=== PATIENT | female | born 1945 | race Caucasian/White ===

== ENCOUNTER 2018-07-15 09:01 | Day surgery (SDC) | payer MEDICARE ==
--- NOTE | 2018-07-01 07:40 | HP ---
CC: Dr. Mcarthur HISTORY AND PHYSICAL: DATE OF PLANNED ADMISSION AND SURGERY: 07/15/18 HISTORY OF PRESENT ILLNESS: Ms. Ching is a 72-year-old white female, who is admitted with left hydronephrosis, left ureteropelvic junction obstruction for cystoscopy, balloon dilation, and placement of left ureteral stent. Ms. Ching was referred to my office by Ms. Yash NP, from Dr. Mcarthur's office because of microhematuria and urge urinary incontinence. She was treated in the past for her incontinence and had an InterStim placement by Dr. Kim in [place], [place]. The InterStim stopped working possibly because the battery was depleted. When I saw her in my office, I started her on Myrbetriq 50 mg daily. She noted significant improvement of her urge incontinence and the InterStim was removed. As a workup of her microhematuria and incontinence, she had a work-up. Cystoscopy was negative showing no bladder lesions. Renal ultrasound showed [id number] left hydronephrosis consistent with ureteropelvic junction obstruction, without associated hydroureter and no calculi or masses to explain the hydronephrosis. She did not have any previous renal imaging to see if this finding is chronic or new. CT urogram was obtained showing left UPJ obstruction, and there were no associated retroperitoneal masses or filling defects in the ureter or the renal pelvis. Diuretic nuclear renal scan was then obtained, and was consistent with high- grade obstruction of the left kidney at the UPJ level with a T1/2 of 94 minutes. The patient has been having on and off left flank pain. It was interpreted in the past as being musculoskeletal in nature. She denies any history of gross hematuria, urinary tract infections, or pyelonephritis. The patient is a nonsmoker. 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 She has not required any additional treatment. She has had no recurrent disease. She is hypertensive, maintained on lisinopril 40 mg daily, amlodipine 10 mg daily, and HCTZ 12.5 mg daily. She has hypothyroidism, on replacement. She has history of bipolar disorder and depression and maintained on bupropion 100 mg 3 times per day, lamotrigine 100 mg in a.m. and 200 mg in p.m., clonazepam 0.5 mg twice a day, NeuroReplete 150 mg 2 capsules in the morning and 1 capsule in the evening, CysReplete 2 capsules in the morning and 1 capsule in the evening. She has GERD, on ranitidine 150 mg twice a day. She is on supplements. ALLERGIES: She denies any allergies to medications. SOCIAL HISTORY: She is a nonsmoker. FAMILY HISTORY: Negative for renal diseases. PHYSICAL EXAMINATION GENERAL: She is a pleasant white female, who looks her age. VITAL SIGNS: Blood pressure 110/70, pulse of 80. LUNGS: Clear. HEART: Regular and rhythmic. No murmurs. ABDOMEN: Soft. No masses, no tenderness, and mild left CVA tenderness. PELVIC EXAM: Done at the time of the cystoscopy was negative. Extremities: no edema IMPRESSION: 1. Left ureteropelvic junction obstruction with severe left hydronephrosis and episodes of on and off left flank pain. This condition was noted on a recent evaluation and there are no previous renal imaging to compare to and to decide whether this is a congenital or a recently acquired hydronephrosis. 2. Microscopic hematuria with negative work-up except for the left hydronephrosis. 3. Overactive bladder with resolution of her symptoms on Myrbetriq 50 mg daily. 4. Hypertension, well controlled on treatment. 5. Bipolar disorder and anxiety, on multiple medications, well controlled. PLAN: I had a long discussion with the patient regarding the options of management of the left hydronephrosis. Considering her age and the fact that her serum Cr is normal, surveillance is an option, and she would need periodic imaging to assess the condition and the renal function. The other options include cystoscopy with balloon dilation of the UPJ and stent placement for several weeks which has a modest chance of improving her obstruction. The last option is dismembered pyeloplasty. The pros and cons of each modality of management were discussed. After thinking about these options, patient called the office and wanted to proceed with the balloon dilation and stent placement. She understands that this is the least of the invasive procedures for her condition; however, the success rate is limited. Some of the potential complications of the procedure including infection and recurrence of the obstruction were discussed. All her questions were answered. [id number]/[facility] #: [id number] STAL[place]
[~2018-07-15 09:01] MED LIST: Buffered Lidocaine 0.9% SYRIN* 5 ML/SYR SYRINGE INTRADERM ONE; Dexamethasone IV* 4 MG/ML 1 ML (4 MG) IV SLOW PU ONE; Famotidine IV* 10 MG/ML 2 ML (20 mg) IV ONE; Lactated Ringers 1000 ML Bag* 1,000 ML IV SCH
[2018-07-15] MEDS ORDERED: Dexamethasone IV* 4 MG/ML 1 ML (4 MG) ONE (09:14)
[2018-07-15] MEDS ORDERED: Famotidine IV* 10 MG/ML 2 ML (20 mg) ONE (09:14)
[2018-07-15] MEDS ORDERED: cefTRIAXone(*) 1 GM ADVAN/BAG ONE (09:14)
[2018-07-15] MEDS ORDERED: fentaNYL* 50 MCG/ML 2 ML VIAL (100 MCG VIAL) ONE (10:12)
[2018-07-15] MEDS ORDERED: Lidocaine 2% PF * 5 ML VIAL ONE (10:12)
[2018-07-15] MEDS ORDERED: Propofol* 10 MG/ML 20 ML BTL ONE (10:12)
[2018-07-15] MEDS ORDERED: fentaNYL* 50 MCG/ML 2 ML VIAL (100 MCG VIAL) IV PRN (10:52)
[2018-07-15] MEDS ORDERED: Naloxone* 0.4 MG/ML 1 ML VIAL IV PRN (10:52)
[2018-07-15] MEDS ORDERED: DiMENhydriNATE IV* 50 MG/ML VIAL IV PUSH PRN (10:52)
[2018-07-15] MEDS ORDERED: Ketorolac INJ* 30 MG/ML 1 ML VIAL ONE (11:25)
[2018-07-15] MEDS ORDERED: Ondansetron INJ* 2 MG/ML VIAL ONE (11:25)
[2018-07-15] MEDS ORDERED: Iohexol 180 (CONTRAST) 10 ML SDV IV ONE (11:28)
[2018-07-15 13:50] VITALS: BP 123/86
--- NOTE | 2018-07-16 06:03 | OP ---
CC: Dr. Mcarthur.* DATE OF OPERATION: 07/15/18 - SDS DATE OF : 41. SURGEON: Dr. Gómez. ANESTHESIOLOGIST: Dr. Joel Maya. ANESTHESIA: General. PRE-OP DIAGNOSES: 1. Left hydronephrosis. 2. Left ureteropelvic junction obstruction. POST-OP DIAGNOSES: 1. Left hydronephrosis. 2. Ureteropelvic junction obstruction with a 360-degree coil of the proximal ureter. OPERATIVE PROCEDURE: 1. Cystoscopy. 2. Left retrograde pyelography. 3. Placement of left ureteral stent (black silicone, 28 cm, 7-Zambian). INDICATION FOR PROCEDURE: Ms. Ching is a 72-year-old white female who was worked up in the office because of microscopic hematuria and symptoms of overactive bladder. Her cystoscopy was negative. Renal ultrasound followed by CT urogram showed severe left hydronephrosis with obstruction at the left ureteropelvic junction. The patient has been totally asymptomatic, having no flank pain or renal symptoms. After discussing the various options of management including just observation, the patient started to proceed with the plan for left retrograde pyelography, balloon dilation of the UPJ, and stent placement. PATHOLOGY: At cystoscopy, the bladder mucosa looked normal. There were no suspicious bladder lesions seen. The ureteral orifices looked normal. Upon left retrograde pyelography, there was a 360-degree coil of the proximal ureter just distal to the ureteropelvic junction. There was no anatomical obstruction noted in the ureter distal to the coil. There was severe left hydronephrosis. DESCRIPTION OF PROCEDURE: After successful general anesthesia, the patient was placed in the lithotomy position and was prepped and draped for cystoscopy. Cystoscopy was performed. The bladder was inspected and the above findings were noted. A size 5-Zambian open-ended catheter was positioned in the distal left ureter over a guidewire. Retrograde pyelography was then performed, demonstrating the above pathology. The open-ended catheter was then introduced into the proximal ureter over the guidewire. Additional retrograde studies were done confirming the above pathology. A glidewire was then used and was successfully introduced through the coiled ureteral segment and into the renal pelvis. The open-ended catheter could not be safely introduced over the guidewire through the coil. The glidewire was then removed and a hybrid guidewire with a floppy tip was then introduced and successfully negotiated the coil of the ureter and the proximal end was positioned in the renal pelvis. This distal part of the guidewire did not straighten up the coil, which was again 360 degrees. Decision was then made to place a ureteral stent. A black silicone stent, 28 cm long, 7-Zambian was then fed on top of the guidewire. The stent was just long enough so that 1.5 to 2 cm of the proximal end of the stent was positioned in the renal pelvis and there was another 1 cam coil of the stent in the bladder. The contrast could be seen coming through the lumen of the stent. There was no extravasation noted. The patient tolerated the procedure well and left the operating room in good condition. The pathology seems to be a full 360-degree coil of the proximal ureter without any evidence of anatomical obstruction distal to the coil. We will follow with additional x-rays and decide on the definitive treatment. [id number]/[facility] #: [id number] MTDD
== END 2018-07-16 02:38 | disposition home or self-care (01) ==
LOC: OR 09:01
PROVIDERS: ATTEND Urology
DX: N13.0 Hydronephrosis with ureteropelvic junction obstruction (principal); R31.29 Other microscopic hematuria; N39.41 Urge incontinence; Z85.3 Personal history of malignant neoplasm of breast; K21.9 Gastro-esophageal reflux disease without esophagitis; I10 Essential (primary) hypertension; F31.9 Bipolar disorder, unspecified; R10.9 Unspecified abdominal pain; K59.00 Constipation, unspecified; R11.0 Nausea
CPT/HCPCS: 36415; 74018; 74420; 80053; 81003; 81015; 82150; 83690; 83735; 85025; 85730; 86140; 87086; 96365; 96375; 99283; A9270-GY; C1876; J0696; J1100; J1885; J1956; J2405; J2704; J3010

== ENCOUNTER 2018-07-15 21:53 | Emergency (ER) | payer MEDICARE ==
--- NOTE | 2018-07-15 22:19 | ED ---
GI/ HPI - HPI Summary HPI Summary: This patient is a 72 year old F presenting to [facility] accompanied by family with a chief complaint of unable to urinate that began at approximately 1800. The patient rates the pain 4/10 in severity. Symptoms aggravated by nothing. Symptoms alleviated by nothing. Patient reports lower abdominal pain. Patient denies fever. Patient states she had a stent placed due to left ureteral restriction by Dr. Gómez. Patient states she was given general anesthesia for this procedure. Patient states she arrived home from this procedure at 1445. - History of Current Complaint Chief Complaint: EDUrogenitalProblems Time Seen by Provider: 07/15/18 22:09 Stated Complaint: UNABLE TO URINATE/VOMITING Hx Obtained From: Patient Onset/Duration: Started Hours Ago, Still Present Timing: Constant Severity: Moderate Current Severity: Moderate Pain Intensity: 4 Location of Pain: Diffuse Associated Signs and Symptoms: Positive: Other: - Positive abdominal pain. Negative: Fever Aggravating Factor(s): Nothing Alleviating Factor(s): Nothing - Additional Pertinent History Primary Care Physician: YOHAN - Allergy/Home Medications Allergies/Adverse Reactions: Allergies Allergy/AdvReac Type Severity Reaction Status Date / Time Environmental Allergies Allergy Mild Runny Nose Uncoded 07/15/18 22:00 PMH/Surg Hx/FS Hx/Imm Hx Previously Healthy: No Endocrine/Hematology History: Reports: Hx Thyroid Disease - hypothyroid Denies: Hx Diabetes Cardiovascular History: Reports: Hx Angina, Hx Hypertension - on medications Denies: Other Cardiovascular Problems/Disorders Respiratory History: Denies: Other Respiratory Problems/Disorders GI History: Reports: Hx Gastroesophageal Reflux Disease - on ranitidine, Hx Irritable Bowel Denies: Other GI Disorders History: Reports: Other Problems/Disorders - Urinary incontinence Denies: Hx Renal Disease Musculoskeletal History: Reports: Hx Arthritis - Osteoarthritis-thumbs, neck, left knee, Hx Osteoporosis - TOOK MEDS FOR 5 YEARS Denies: Other Musculoskeletal History Sensory History: Reports: Hx Contacts or Glasses - Glasses Denies: Hx Hearing Aid Opthamlomology History: Reports: Hx Contacts or Glasses - Glasses Neurological History: Reports: Hx Migraine - stopped 4-5 years Denies: Other Neuro Impairments/Disorders Psychiatric History: Reports: Hx Anxiety - Bipolar disorder, Hx Depression - Bipolar disorder, Hx Bipolar Disorder - Cancer History Cancer Type, Location and Year: breast cancer. mortons neuroma bilateral feet Hx Chemotherapy: No Hx Radiation Therapy: No - Surgical History Surgery Procedure, Year, and Place: Right mastectomy-1988 [place]. Multiple biopsies under general anesthesia Hx Anesthesia Reactions: Yes - Hx of hard time waking up, years ago-told they don't use that anymore Infectious Disease History: No Infectious Disease History: Denies: Traveled Outside the [place] in Last 30 Days - Family History Known Family History: Positive: Other - Breast CA - Social History Occupation: Retired Lives: Alone Alcohol Use: None Hx Substance Use: No Substance Use Type: Reports: None Hx Tobacco Use: No Smoking Status (MU): Never Smoked Tobacco Have You Smoked in the Last Year: No Review of Systems Negative: Fever Positive: Abdominal Pain Genitourinary: Other - Positive inability to urinate All Other Systems Reviewed And Are Negative: Yes Physical Exam - Summary Physical Exam Summary: VITAL SIGNS: Reviewed. GENERAL: Patient is a well-developed and nourished female who is lying comfortable in the stretcher. Patient is not in any acute respiratory distress. HEAD AND FACE: No signs of trauma. No ecchymosis, hematomas or skull depressions. No sinus tenderness. EYES: PERRLA, EOMI x 2, No injected conjunctiva, no nystagmus. EARS: Hearing grossly intact. Ear canals and tympanic membranes are within normal limits. MOUTH: Oropharynx within normal limits. NECK: Supple, trachea is midline, no adenopathy, no JVD, no carotid bruit, no c- spine tenderness, neck with full ROM. CHEST: Symmetric, no tenderness at palpation LUNGS: Clear to auscultation bilaterally. No wheezing or crackles. CVS: Regular rate and rhythm, S1 and S2 present, no murmurs or gallops appreciated. ABDOMEN: Soft. No signs of distention. No rebound no guarding, and no masses palpated. Bowel sounds are normal. Suprapubic fullness. Mild suprapubic tenderness. EXTREMITIES: FROM in all major joints, no edema, no cyanosis or clubbing. NEURO: Alert and oriented x 3. No acute neurological deficits. Speech is normal and follows commands. SKIN: Dry and warm Triage Information Reviewed: Yes Vital Signs On Initial Exam: Initial Vitals Temp Pulse Resp BP Pulse Ox 97.8 F 106 16 175/99 96 07/15/18 21:57 07/15/18 21:57 07/15/18 21:57 07/15/18 21:57 07/15/18 21:57 Vital Signs Reviewed: Yes Diagnostics - Vital Signs Vital Signs Temp Pulse Resp BP Pulse Ox 07/15/18 21:57 97.8 F 106 16 175/99 96 - Laboratory Result Diagrams: 07/16/18 00:09 07/16/18 00:09 Lab Statement: Any lab studies that have been ordered have been reviewed, and results considered in the medical decision making process. - Radiology XR Radiology Interpretation Completed By: ED Physician Summary of Radiographic Findings: Abdomen XR reveals, per ED physician, ureteral stent from left renal pelvis to urinary bladder. Increased colonic stool, consistend with constipation. Re-Evaluation - Re-Evaluation First Eval Re-Evaluation Time: 23:37 Change: Unchanged Comment: Discussed results and plan of care with patient. Patient states she took IV antibiotics during the procedure, but she was not given antibiotics when going home. Patient has not had fever or chills since going home after the procedure. GIGU Course/Dx - Course Course Of Treatment: This patient is a 72 year old F presenting to [facility] accompanied by family with a chief complaint of unable to urinate that began at approximately 1800. Patient states she had a stent placed due to left ureteral restriction by Dr. Gómez. Patient states she was given general anesthesia for this procedure. Patient states she arrived home from this procedure at 1445. Physical Exam Findings: Suprapubic fullness. Mild suprapubic tenderness. UA obtained. In the ED course, patient received Levaquin and Zofran. Patient states she took IV antibiotics during the procedure, but she was not given antibiotics when going home. Patient has not had fever or chills since going home after the procedure. Patient will be discharged with prescription for Levaquin and follow up from PCP and Dr. Gómez. The patient is agreeable with this plan. - Diagnoses Provider Diagnoses: UTI (urinary tract infection), Constipation Discharge - Sign-Out/Discharge Documenting (check all that apply): Patient Departure - Discharge home - Discharge Plan Condition: Stable Disposition: HOME Prescriptions: Levofloxacin TAB* [Levaquin TAB*] 500 mg PO DAILY #7 tab Patient Education Materials: Levofloxacin (By mouth), Constipation (ED), Urinary Tract Infection in Women (ED) Referrals: Luciano Mcarthur MD [Primary Care Provider] - 2 Days Josiah Gómez MD [Medical Doctor] - As Soon As Possible (Call tomorrow (2017).) Additional Instructions: Increase fiber intake. Take Metamucil. RETURN TO THE EMERGENCY DEPARTMENT FOR NEW OR WORSENING SYMPTOMS - Billing Disposition and Condition Condition: STABLE Disposition: Home - Attestation Statements Document Initiated by Scribe: Yes Documenting Scribe: Inan Machuca Provider For Whom Rosalia is Documenting (Include Credential): Dr. Lucas Davies MD Scribe Attestation: Inna Kiser, scribed for Dr. Lucas Davies MD on 07/16/18 at 0636. Scribe Documentation Reviewed: Yes Provider Attestation: The documentation as recorded by the Inna norton accurately reflects the service I personally performed and the decisions made by me, Dr. Lucas Davies MD Status of Scribe Document: Viewed
[2018-07-15 23:35] LABS: Urine Appearance Cloudy; Urine Blood 3+ (Negative); Urine Color Yellow; Urine Ketones Negative (Negative); Urine Protein 2+(100 mg/dL) (Negative); Urine Red Blood Cell 3+(>10/hpf) (Absent); Urine Specific Gravity 1.013 (1.010-1.030); Urine Urobilinogen Negative (Negative); Urine White Blood Cell 1+(6-10/hpf) (Absent)
[2018-07-15] MEDS ORDERED: Levofloxacin TAB* 500 MG PO ONE (23:40)
[2018-07-15] MEDS ORDERED: Ondansetron ODT TAB* 4 MG SL ONE (23:40)
[2018-07-15] MEDS ORDERED: NS 0.9% 1000 ML* 1,000 ML IV ONE (23:59)
[2018-07-16 00:23] LABS: ABS Basophils 0 10^3/ul (0-0.2); ABS Eosinophils 0 10^3/ul (0-0.6); ABS Lymphocytes 0.3 10^3/ul (1.0-4.8); ABS Monocytes 0.4 10^3/ul (0-0.8); ABS Neutrophils 8.7 10^3/ul (1.5-7.7); ABS Nucleated RBC 0 10^3/ul; Eosinophil % 0 %; Hematocrit 41 % (35-47); Lymphocyte % 3.1 %; Mean Corpuscular HGB Conc 34 g/dl (31-36); Mean Corpuscular Hemoglobin 34 pg (27-31); Mean Corpuscular Volume 99 fL (80-97); Mean Platelet Volume 7.6 fL (7.4-10.4); Nucleated Red Blood Cells % 0; Platelet Count 276 10^3/ul (150-450); Red Blood Count 4.13 10^6/ul (4.00-5.40); Red Cell Distribution Width 13 % (10.5-15); White Blood Count 9.4 10^3/ul (3.5-10.8)
[2018-07-16 00:34] LABS: EGFR Non-African American 120.6 (>60)
[2018-07-16] MEDS ORDERED: Ketorolac INJ* 30 MG/ML 1 ML VIAL IV PUSH ONE (00:52)
[2018-07-16] MEDS ORDERED: Levofloxacin 500 MG IVPREMIX(* 500 MG/100 ML BAG IVPB ONE (00:53)
[2018-07-16] MEDS ORDERED: Bisacodyl SUPP* 10 MG SUPP PR ONE (00:58)
[2018-07-16] MEDS ORDERED: Magnesium CITRATE* 300 ML BTL PO ONE (00:58)
[2018-07-16 02:39] VITALS: BP 156/92
== END 2018-07-16 02:38 | disposition home or self-care (01) ==
LOC: ED 21:53
DX: N39.0 Urinary tract infection, site not specified (principal); R10.9 Unspecified abdominal pain; I10 Essential (primary) hypertension; K59.00 Constipation, unspecified; R11.0 Nausea
CPT/HCPCS: 36415; 74018; 80053; 81003; 81015; 82150; 83690; 83735; 85025; 85730; 86140; 87086; 96365; 96375; 99283; A9270-GY; J1885; J1956

== ENCOUNTER 2018-11-11 10:53 | Day surgery (SDC) | payer MEDICARE ==
[~2018-11-11 10:53] MED LIST changes: +Acetaminophen TAB* 325 MG PO PRN; -Buffered Lidocaine 0.9% SYRIN* 5 ML/SYR SYRINGE INTRADERM ONE; +Buffered Lidocaine 1% SYRIN* 1 ML/SYRINGE INTRADERM ONE; -Dexamethasone IV* 4 MG/ML 1 ML (4 MG) IV SLOW PU ONE; -Famotidine IV* 10 MG/ML 2 ML (20 mg) IV ONE; -Lactated Ringers 1000 ML Bag* 1,000 ML IV SCH
[2018-11-11] MEDS ORDERED: Midazolam* 1 MG/ML 2 ML VIAL (2 MG) ONE (13:02)
[2018-11-11 13:58] VITALS: BP 151/89
--- NOTE | 2018-11-11 16:31 | OP ---
DATE OF OPERATION: 11/11/18 - [facility] DATE OF : 41 SURGEON: Alexsander Lizarraga M.D. PREOPERATIVE DIAGNOSIS: Cataract, left eye. POSTOPERATIVE DIAGNOSIS: Cataract, left eye. OPERATIVE PROCEDURE: Extracapsular cataract extraction with intraocular lens implant, left eye. DESCRIPTION OF PROCEDURE: The patient was brought to the operating room after being given 1/2% Alcaine with epinephrine drops in the preoperative area. The eye was prepped and draped in the usual sterile fashion. Sterile drape and eyelid speculum were placed. Again, topical 1/2% Alcaine with epinephrine was given. A paracentesis incision was made at the 3 o'clock position with the No.75 blade. Clear cornea incision 2.2 x 2.2-mm was created at the 6 o'clock position starting at the anterior limbus using the 2.2-mm keratome. The anterior chamber was irrigated with 0.4 mL of 1% non-preservative intracameral lidocaine and filled with DisCoVisc. A capsulorrhexis was completed using the cystotome and the Utrata forceps. Hydrodissection was performed with balanced salt solution. The lens nucleus was removed with the Phacoemulsification handpiece without incident. Cortex was removed with the irrigation-aspiration handpiece. The capsular bag was re-inflated using DisCoVisc and an [id number] 23.5 implant was inserted with the shooter. The irrigation-aspiration handpiece was used to remove all residual DisCoVisc. The eye was refilled with balanced salt solution and the wound checked and found to be watertight. Topical Maxitrol drops were given. [id number]/[facility] #: [id number] [facility]
== END 2018-11-11 14:15 | disposition home or self-care (01) ==
LOC: OREAST 10:53
PROVIDERS: ATTEND Specialist
DX: H25.812 Combined forms of age-related cataract, left eye (principal); H43.813 Vitreous degeneration, bilateral; H40.013 Open angle with borderline findings, low risk, bilateral; E03.9 Hypothyroidism, unspecified; I10 Essential (primary) hypertension; F31.9 Bipolar disorder, unspecified
CPT/HCPCS: J2250; V2632

== ENCOUNTER 2018-11-18 07:01 | Day surgery (SDC) | payer MEDICARE ==
[2018-11-18] MEDS ORDERED: Midazolam* 1 MG/ML 2 ML VIAL (2 MG) ONE (08:42)
[2018-11-18 09:40] VITALS: BP 132/80
[2018-11-18] MEDS ORDERED: Lidocaine 2% EPI 1:200000 MPF*10-20 ML VIAL ONE (09:40)
[2018-11-18] MEDS ORDERED: Phenylephrine OPHTH SOL 2.5%* 2 ML ONE (09:40)
[2018-11-18] MEDS ORDERED: Ketorolac 0.5% OPHTH (NF) 0.5 % 5 ML BTL ONE (09:40)
[2018-11-18] MEDS ORDERED: Lidocaine 1%* 5 ML VIAL ONE (09:40)
[2018-11-18] MEDS ORDERED: Neomycin/Polymy/Dex OPTH.SUSP* MAXITROL 0.1% 5 ML ONE (09:40)
[2018-11-18] MEDS ORDERED: acetaZOLAMIDE TAB* 250 MG ONE (09:40)
[2018-11-18] MEDS ORDERED: Cyclopentolate 1% OPTH.SOL* 2 ML BTL ONE (09:40)
[2018-11-18] MEDS ORDERED: Povidone Iodine 5% OPTH* 30 ML BTL ONE (09:40)
[2018-11-18] MEDS ORDERED: Proparacaine 0.5% OPHTH.SOL* 15 ML BTL ONE (09:41)
--- NOTE | 2018-11-18 11:48 | OP ---
DATE OF OPERATION: 11/18/18 [facility] DATE OF : 41 SURGEON: Alexsander Lizarraga M.D. PREOPERATIVE DIAGNOSIS: Cataract, right eye. POSTOPERATIVE DIAGNOSIS: Cataract, right eye. OPERATIVE PROCEDURE: Extracapsular cataract extraction with intraocular lens implant, right eye. DESCRIPTION OF PROCEDURE: The patient was brought to the operating room after being given 1/2% Alcaine with epinephrine drops in the preoperative area. The eye was prepped and draped in the usual sterile fashion. Sterile drape and eyelid speculum were placed. Again, topical 1/2% Alcaine with epinephrine was given. A paracentesis incision was made at the 9 o'clock position with the No.75 blade. Clear cornea incision 2.2 x 2.2-mm was created at the 12 o'clock position starting at the anterior limbus using the 2.2-mm keratome. The anterior chamber was irrigated with 0.4 mL of 1% non-preservative intracameral lidocaine and filled with DisCoVisc. A capsulorrhexis was completed using the cystotome and the Utrata forceps. Hydrodissection was performed with balanced salt solution. The lens nucleus was removed with the Phacoemulsification handpiece without incident. Cortex was removed with the irrigation-aspiration handpiece. The capsular bag was re-inflated using DisCoVisc and an [id number] 23.5 implant was inserted with the shooter. The irrigation-aspiration handpiece was used to remove all residual DisCoVisc. The eye was refilled with balanced salt solution and the wound checked and found to be watertight. Topical Maxitrol drops were given. [id number]/[facility] #: [id number] MTDD
== END 2018-11-18 09:42 | disposition home or self-care (01) ==
LOC: OREAST 07:01
PROVIDERS: ATTEND Specialist
DX: H25.811 Combined forms of age-related cataract, right eye (principal); H43.813 Vitreous degeneration, bilateral; H40.013 Open angle with borderline findings, low risk, bilateral; I10 Essential (primary) hypertension; Z85.3 Personal history of malignant neoplasm of breast; F31.9 Bipolar disorder, unspecified
CPT/HCPCS: A9270-GY; J2250; V2632

== ENCOUNTER 2019-02-03 11:15 | Emergency (ER) | payer MEDICARE ==
--- OUTSIDE RECORDS SUMMARY | 2019-02-03 11:21 | XMS REPORT | Continuity of Care Document ---
:1945 External Reference #:[id number] Author Name Le Frankel O.D. Address [address] [facility] [place] [address] Care Team Providers Name Role Phone Cullen Paris M.D. Primary Care Physician Unavailable Payers Date Identification Numbers Payment Provider Subscriber Policy Number: [id number] Medicare - [employer] PayID: [id number] [address] [place] [address] Policy Number: [id number] [facility] [employer] PayID: [id number] [address] [place] [address] Problems Active Problems Provider Date Malignant neoplasm of female breast Onset: Note: 1988 Hypertensive disorder Onset: Bipolar disorder Onset: Hypothyroidism Onset: Gastroesophageal reflux disease Onset: Psoriasis Onset: Incontinence Onset: Presbyopia Le Frankel O.D. Onset: 01/22/2019 Regular astigmatism Le Frankel O.D. Onset: 01/22/2019 Myopia Le Frankel O.D. Onset: 01/22/2019 Tear film insufficiency Alexsander Lizarraga M.D. Onset: 12/04/2018 Presence of intraocular lens Alexsander Lizarraga M.D. Onset: 11/12/2018 Open-angle glaucoma - borderline Alexsander Lizarraga M.D. Onset: 10/23/2018 Vitreous degeneration Alexsander Lizarraga M.D. Onset: 10/23/2018 Combined form of senile cataract Alexsander Lizarraga M.D. Onset: 10/23/2018 Family History Date Family Member(s) Observation Comments Father Detached Retina Mother No Current Problems Social History Type Date Description Comments Sex Unknown Marital Status Single Occupation worked in Mental Health Work Status Retired ETOH Use Denies alcohol use Tobacco Use Start: Unknown Patient has never smoked Recreational Drug Use Denies Drug Use Smoking Status Reviewed: 01/22/19 Patient has never smoked Allergies, Adverse Reactions, Alerts Description No Known Drug Allergies Medications Active Medications SIG Qnty Indications Ordering Date Provider Artificial Tears One drop in Alexsander George 12/02/2018 0.2-0.2-1% both eyes four Sumi Lizarraga Solution times per day Miralax Unknown 3350NF Packet Yin Xaio Unknown Calcium 600+D 2 in in the Unknown 600-800 Tablets morning Probiotic Unknown Capsules Vitamin-B Complex Unknown Tablets Vitamin D3 3 daily Unknown 1000Unit Capsules Multiple Vitamins Unknown Tablets Fish Oil 1 by mouth Unknown 1000mg Capsules every day Cys-Replete Unknown Neuro-Replete Unknown Bupropion HCL 150mg am / Unknown 100mg Tablets 100mg 12pm / 100mg in pm Lamotrigine 100mg am / Unknown 100mg Tablets 200mg pm Triamcinolone Acetonide Unknown 0.1% Cream Oxybutynin Chloride ER Take 1 Tablet Unknown 10mg Tablets By Mouth Every ER 24HR Day Hyoscyamine Sulfate Unknown 0.125mg Tablets Dispers Clonazepam take 1 tablet Unknown 0.5mg Tablets by mouth twice a day if needed for anxiety maximum daily dose of 2 Ranitidine HCL take 1 tablet Unknown 150mg Tablets by mouth twice a day Lisinopril take 1 tablet Unknown 40mg Tablets by mouth once daily Levothyroxine Sodium take 1 tablet Unknown 100mcg Tablets by mouth once daily Hydrochlorothiazide take 1 tablet Unknown 12.5mg Tablets by mouth once daily Amlodipine Besylate take 2 tablets Unknown 5mg Tablets by mouth once daily History Medications Ciprofloxacin HCL instill one drop 10ml Alexsander Lizarraga, 11/02/2018 - 0.3% in the right eye M.D. 12/02/2018 Solution three times a day, start the day before surgery Ketorolac Tromethamine use one drop in 10ml Alexsander Lizarraga, 11/02/2018 - 0.5% the right eyes M.D. 12/02/2018 Solution three times a day 1 drop two times a day in the left eye, start the day before surgery Prednisolone Acetate 1 drops left eye 15ml Alexsander Lizarraga, 11/02/2018 - 1% two times a day. 1 M.D. 12/02/2018 Suspension drop right eye 3 times a day taper as directed Procedures Date Code Description Status 11/18/2018 92689 Extracapsular Cataract Extraction W/Intraocular Lens Completed 11/11/2018 07200 Extracapsular Cataract Extraction W/Intraocular Lens Completed 11/02/2018 74478 Ophthalmic Biometry Completed 11/02/2018 98467 Ophthalmic Biometry Completed 11/02/2018 56295 Est Patient Intermediate Exam Completed 10/23/2018 38954 New Patient Comprehensive Exam Completed Plan of Treatment 01/22/2019 - Le Frankel O.D.Z96.1 Presence of intraocular lensComments: Your lens implant looks stable in both eyes at this time. You should be done, or almost done with your drops at this time according to your surgical calendar. I have given you a prescription for glasses. If you have any questions, please feel free to call our office at .Follow up: [id number] Myopia, bilateralComments:You have Myopia, or near sightedness. I have given you a prescription for glasses.H52.223 Regular astigmatism, bilateralComments:Astigmatism is a common vision condition that happens when a person's cornea is not symmetrical. Dr. Frankel has given you a prescription to correct for this.H52.4 PresbyopiaComments:Smoking can increase the risk of developing or worsening any eye related disease, as well as affect your overall health. If you are a smoker, we strongly recommend that you quit.If you are not a smoker, we strongly recommend that you do not start. You have presbyopia. This is when the lens in your eye loses the ability to change focus , and happens as we age. A pair of reading glasses will help you see up close.
--- OUTSIDE RECORDS SUMMARY | 2019-02-03 11:21 | XMS REPORT | Continuity of Care Document ---
:1945 External Reference #:[id number] Author Name Fely Mejia Care Team Providers Name Role Phone Subha Garcia M.D. Primary Care Physician Unavailable Payers Date Identification Numbers Payment Provider Subscriber Policy Number: [id number] Medicare [employer] PayID: [id number] [address] [place] [address] Effective: 2015 Policy Number: [id number] Medicare [employer] Expires: 2019 PayID: [id number] [address] [place] [address] Effective: 2015 Policy Number: [id number] [facility] [employer] PayID: [id number] [address] [place] [address] Problems Active Problems Provider Date Localized, primary osteoarthritis Nandini Barrera M.D. Onset: 01/11/2019 Family History Date Family Member(s) Observation Comments General Hypertension General Stroke General Cancer General Osteoporosis Father due to Unknown Causes () - age 96 Mother due to Breast Cancer () Siblings 4 2 brothers skin cancer, HTN 2 sisters- Social History Type Date Description Comments Sex Unknown Lives With Alone Occupation Retired ETOH Use Never used alcohol Tobacco Use Start: Unknown Patient has never smoked Recreational Drug Use Denies Drug Use Smoking Status Reviewed: 01/21/19 Patient has never smoked Exercise Type/Frequency Exercises regularly modified pilates daily, and gym for 1 hour 2-3 times per week. Pt also doing PT exercise for knee for 15 minutes 3-4 times per week. Allergies, Adverse Reactions, Alerts Description No Known Drug Allergies Medications Active Medications SIG Qnty Indications Ordering Date Provider Cys-Replete 150 mg 5HTP - Nandini Barrera, 01/11/2019 2 caps at noon M.D. , 1 cap pm (330 mg total of calcium) Miralax 1 1/2 to 2 Unknown Powder capfuls every 6 hours Calcium 300 MG 1 daily Unknown Multivitamin Adult Extra 1 by mouth Unknown Vitamin C every day Chewtabs Probiotic 1 by mouth Unknown Capsules every day B Complex Unknown Tablets [facility] D3 1 by mouth Unknown 2000Unit Capsules every day Multivitamins 1 by mouth Unknown Capsules every day [facility] Fish Oil 3000 mg total Unknown 1000mg Capsules Myrbetriq 1 by mouth Unknown 50mg Tablets ER 24HR every day Triamcinolone Acetonide apply to dry Unknown 0.1% Lotion skin once or twice daily Hyoscyamine Sulfate as needed Unknown 0.125mg/ml Solution Ranitidine HCL 1 by mouth Unknown 150mg Capsules twice a day Levothyroxine Sodium 1 by mouth Unknown 100mcg Tablets every day Amlodipine Besylate 1 by mouth Unknown 10mg Tablets every day Hydrochlorothiazide 1 by mouth Unknown 12.5mg Tablets every day Lisinopril 1 by mouth Unknown 40mg Tablets every day Clonazepam take 1 tablet Unknown 0.25mg Tablets Dispers in the am and 1 tablet in the pm Lamotrigine 1 by mouth in Unknown 100mg Tablets the am and 2 tablets in the pm Bupropion HCL take 1 tablet Unknown 100mg Tablets by mouth 3 times daily (150 in the am) History Medications Neuro-Replete 150 mg 5htp plus Nandini Barrera M.D. 01/11/2019 - (2 caps in Am 01/18/2019 and 1 cap in PM) Calcium Unknown - 250mg Capsules 01/18/2019 Vital Signs Date Vital Result Comment 01/21/2019 1:35pm Height 67.75 inches 5'7.75" Weight 138.00 lb w/ shoes Heart Rate 91 /min BP Systolic Sitting 164 mmHg BP Diastolic Sitting 96 mmHg BMI (Body Mass Index) 21.1 kg/m2 01/11/2019 2:02pm Height 67.75 inches 5'7.75" Weight 138.75 lb Heart Rate 90 /min BP Systolic 140 mmHg BP Diastolic 80 mmHg Respiratory Rate 16 /min Pain Level 4 BMI (Body Mass Index) 21.3 kg/m2 Results Test Date Facility Test Result H/L Range Note Xray 01/11/2019 [facility] Knee 3 Views Bilateral <pending> [address] [place] [address] [phone] Procedures Date Code Description Status 01/11/2019 56793 Inject/Drain Joint/Bursa Major W/O US Completed 10/13/2018 195961420 Bone Mineral Density Test Completed 03/02/2015 40725 Treadmill Interp/Report Only Completed 03/02/2015 33463 Stress Test Supervsn W/Out I/R Completed Encounters Type Date Location Provider Dx Diagnosis Office Visit 03/02/2015 [facility] Lakisha Zaldivar 786.50 Pain Chest 1:58p Assoc,pc [employer] [facility] 401.9 Hypertension Un[facility] 296.80 Bipolar Disorder NOS Office Visit 03/01/2015 1:57p [facility] Andres 786.50 Pain Chest [facility] Sumi Lainez [facility] 401.9 Hypertension Unspec 296.80 Bipolar Disorder NOS Plan of Treatment Future Appointment(s):07/23/2019 11:40 am - Bebo Doan MD at [facility]02/15/2019 1:30 pm [facility] Bebo Doan MDM81.0 Age-related osteoporosis without current pathological fractuFollow up:6 monthsInstructions:1. I recommend an injectable or infusion therapy to prevent hip fracture. 2. Return in 6 months for a follow-up visit. Zoledronic acid ?? A once-yearly, intravenous dose of zoledronic acid (sample brand name: Reclast) is also available for the treatment of osteoporosis. This medication is given into a vein (by "IV") over 15 minutes and is usually well tolerated. Zoledronic acid can improve bone density and decrease the risk of vertebral and hip fractures. Side effects of zoledronic acid can include flu-like symptoms within 24 to 72 hours of the first dose. This may include a low-grade fever and muscle and joint pain. Treatment with a fever-reducing medication (acetaminophen) generally improves the symptoms. Subsequent doses typically cause milder symptoms. Intravenous zoledronic acid is an appealing alternative for people who cannot tolerate oral bisphosphonates or who prefer a once yearly toa monthly , weekly, or daily regimen. Zoledronic acid is usually given for three years and then discontinued. Your doctor will monitor your bone density to see if it needs to be restarted. Denosumab ??Denosumab (brand name: Prolia) is an antibody directed against a specific protein involved in the formation of cells that break down bone. Denosumab improves bone mineral density and reduces fracture in postmenopausal women with osteoporosis. It is given as an injection under the skin once every six months. Although denosumab is generally well tolerated, side effects can include skin infections (cellulitis) and eczema. A mild transient lowering of blood calcium levels has also been reported, but this is not usually a problem in patients with good kidney function, who are taking enough calcium and vitamin D. Denosumab is usually reserved for people who are intolerant of or unresponsive to oral and/or intravenous bisphosphonates. Stopping denosumab results in bone loss within a relatively short time. An increased risk for vertebral fracture has been reported after stopping denosumab. If you needto stop taking denosumab, your doctor will prescribe an alternative medication to prevent rapid boneloss.
[2019-02-03] MEDS ORDERED: NS 0.9% 1000 ML** 1,000 ML IV ONE (11:50)
[2019-02-03] MEDS ORDERED: Aspirin 81 mg CHEW TAB* 81 MG TAB.CHEW PO ONE (11:50)
--- NOTE | 2019-02-03 11:58 | UC ---
Cardiac HPI - HPI Summary HPI Summary: 2 WEEKS OF INTERMITTENT MIDSTERNAL CHEST TIGHTNESS. STATES IT IS NOT CONSISTENTLY WORSE WITH EXERTION BUT SOMETIMES FEELS A LITTLE WORSE AFTER EXERCISING. OCCASIONAL SHORTNESS OF BREATH BUT NOT ALWAYS. NO NAUSEA, NO SWEATS. STATES SHE WAS DIAGNOSED WITH ESOPHAGEAL SPASM A FEW YEARS AGO AND WONDERS IF THAT IS THE CAUSE OF HER CURRENT SYMPTOMS. NO BACK PAIN OR RADIATION TO THE NECK OR ARM. NO DIFFICULTY EATING OR DRINKING. - History of Current Complaint Chief Complaint: UCChestPain Stated Complaint: CHEST TIGHTNESS Time Seen by Provider: 02/03/19 11:18 Hx Obtained From: Patient Onset/Duration: Gradual Onset, Lasting Weeks, Still Present Timing: Constant Initial Severity: Moderate Current Severity: Moderate Pain Intensity: 5 Chest Pain Location: Mid Sternal Character: Tightness Alleviating Factor(s): Spontaneous Resolution Associated Signs & Symptoms: Positive: Chest Pain, Anxiety. Negative: Diaphoresis, Nausea/Vomiting, Back Pain - Allergy/Home Medications Allergies/Adverse Reactions: Allergies Allergy/AdvReac Type Severity Reaction Status Date / Time Environmental Allergies Allergy Mild Runny Nose Uncoded 02/03/19 11:30 PMH/Surg Hx/FS Hx/Imm Hx - Additional Past Medical History Additional PMH: PSORIASIS Endocrine History: Hypothyroidism Cardiovascular History: Hypertension GI/ History: Gastroesophageal Reflux Psychological History: Bipolar Disorder Cancer History: Breast Cancer - Surgical History Surgical History: Yes Surgery Procedure, Year, and Place: Right mastectomy-1988 [place]. Multiple biopsies under general anesthesia. IMPLANT FOR BLADDER INCONTINENCE, SINCE REMOVED. URETERAL STENT 2017 - Family History Known Family History: Positive: Other - Breast CA - Social History Alcohol Use: None Substance Use Type: None Smoking Status (MU): Never Smoked Tobacco Have You Smoked in the Last Year: No - Immunization History Most Recent Influenza Vaccination: 2013 Most Recent Tetanus Shot: Unknown Most Recent Pneumonia Vaccination: Unknown; has received in past Review of Systems All Other Systems Reviewed And Are Negative: Yes Constitutional: Positive: Negative Skin: Positive: Negative Respiratory: Positive: Shortness Of Breath Cardiovascular: Positive: Chest Pain Gastrointestinal: Positive: Negative Physical Exam Triage Information Reviewed: Yes Appearance: Well-Appearing, No Pain Distress, Well-Nourished Vital Signs: Initial Vital Signs Temp 97.7 F 02/03/19 11:27 Pulse 90 02/03/19 11:27 Resp 18 06/26/19 11:27 BP 177/82 02/03/19 11:27 Pulse Ox 95 02/03/19 11:27 Vital Signs Reviewed: Yes Eyes: Positive: Conjunctiva Clear ENT: Positive: Hearing grossly normal Neck: Positive: Supple Respiratory Exam: Normal Cardiovascular Exam: Normal Abdomen Description: Positive: Nontender, Soft Musculoskeletal: Positive: No Edema Neurological: Positive: Alert Psychological: Positive: Age Appropriate Behavior Skin: Negative: Rashes Diagnostics - EKG Cardiac Rate: NL - 87 BPM Cardiac Rhythm: Sinus: Normal Ectopy: None Summary of EKG Findings: T WAVE INVERSION ANTERIOR LEADS - Assessment/Plan Course Of Treatment: 2 WEEKS OF INTERMITTENT MIDSTERNAL CHEST TIGHTNESS. DENIES ANY DISCOMFORT PRESENTLY. BLOOD PRESSURE SIGNIFICANTLY ELEVATED. EKG WITH INVERTED T WAVES IN THE ANTERIOR LEADS. 4 BABY ASPIRINS GIVEN. TO [facility] BY AMBULANCE. - Clinical Impression Provider Diagnosis: Chest pain - Physician Notifications Discussed Patient Care With: Chantale Zaman - TO [facility] BY AMBULANCE Time Discussed With Above Provider: 11:50 Instructed by Provider To: MD Will See In ED Discharge - Sign-Out/Discharge Documenting (check all that apply): Patient Departure All imaging exams completed and their final reports reviewed: No Studies - Discharge Plan Condition: Stable Disposition: TRANS HIGHER LVL OF CARE FAC Referrals: Subha Garcia MD [Primary Care Provider] - - Billing Disposition and Condition Condition: STABLE Disposition: Trans Higher Lvl of Care Fac
[2019-02-03 12:19] VITALS: BP 147/84
== END 2019-02-03 12:26 | disposition short-term general hospital (02) ==
LOC: UCEAST 11:15
DX: R07.9 Chest pain, unspecified (principal); E03.9 Hypothyroidism, unspecified; I10 Essential (primary) hypertension; K21.9 Gastro-esophageal reflux disease without esophagitis; F31.9 Bipolar disorder, unspecified; Z80.3 Family history of malignant neoplasm of breast; Z90.11 Acquired absence of right breast and nipple
CPT/HCPCS: 93005; 96361; 99213; A9270-GY; G0463

== ENCOUNTER 2019-02-03 12:44 | Observation (INO) | payer MEDICARE ==
[2019-02-03 13:24] LABS: ABS Lymphocytes 0.7 10^3/ul (1.0-4.8); ABS Monocytes 0.6 10^3/ul (0-0.8); ABS Neutrophils 4.6 10^3/ul (1.5-7.7); Eosinophil % 0.7 %; Hematocrit 42 % (35-47); Hemoglobin 14.5 g/dL (12.0-16.0); Lymphocyte % 12.4 %; Mean Corpuscular HGB Conc 34 g/dL (31-36); Mean Corpuscular Hemoglobin 34 pg (27-31); Mean Corpuscular Volume 99 fL (80-97); Mean Platelet Volume 7.3 fL (7.4-10.4); Platelet Count 260 10^3/uL (150-450); Red Blood Count 4.27 10^6 /uL (3.70-4.87); Red Cell Distribution Width 13 % (10-15)
[2019-02-03 13:41] LABS: Albumin 4.2 g/dL (3.2-5.2); Albumin/Globulin Ratio 1.7 (1-3); BUN/Creatinine Ratio 35.7 (8-20); Calcium 9.5 mg/dL (8.6-10.3); EGFR African American 127.7 (>60); EGFR Non-African American 105.5 (>60); Globulin 2.5 g/dL (2-4); Potassium 3.9 mmol/L (3.5-5.0); Total Bilirubin 0.4 mg/dL (0.2-1.0); Total Protein 6.7 g/dL (6.4-8.9)
--- NOTE | 2019-02-03 13:42 | ED ---
HPI Chest Pain - HPI Summary HPI Summary: 73-year-old female presents with intermittent chest pain for the past 2 weeks. She said it feels like a chest tightness. She states she gets this while exercising and at night. States it may resolve when she rests. States last night she developed chest pain for the first time in the center of her chest with some shortness of breath. pain did not radiate anywhere. She denies abdominal pain. No nausea and no vomiting. No cough or recent illness. pain does not change with positional changes. no increase swelling in legs. no pain in her calf muscles. was seen at urgent care and had chest tightness prior to going in. states chest tightness has resolved. ekg at urgent care shows t wave changes. She has a history of esophageal spasms and wonders if same. - History of Current Complaint Chief Complaint: EDChestPainROMI Time Seen by Provider: 02/03/19 13:08 Pain Intensity: 0 - Additional Pertinent History Primary Care Physician: YOHAN - Allergy/Home Medications Allergies/Adverse Reactions: Allergies Allergy/AdvReac Type Severity Reaction Status Date / Time Environmental Allergies Allergy Mild Runny Nose Uncoded 02/03/19 11:30 Home Medications: Home Medications Calcium Carb/Vit D3/Minerals [Calcium 600+D Plus [place]] 1 tab PO DAILY [History Confirmed 02/03/19] Lisinopril TAB* [Prinivil TAB*] 40 mg PO QPM 02/03/19 [History Confirmed ] Multivitamins/Minerals TAB* [Theragran/minerals TAB*] 1 tab PO DAILY 02/03/19 [ History Confirmed 02/03/19] Ranitidine TAB (NF) [Zantac TAB (NF)] 150 mg PO BID 02/03/19 [History Confirmed 02/03/19] amLODIPine TAB* [Norvasc 5 mg TAB*] 10 mg PO QPM 02/03/19 [History Confirmed ] buPROPion TAB* [Wellbutrin TAB*] 100 mg PO BID 02/03/19 [History Confirmed 02/03] buPROPion TAB* [Wellbutrin TAB*] 150 mg PO QAM 02/03/19 [History Confirmed 02/03] clonazePAM TAB(*) [KlonoPIN TAB(*)] 0.25 mg PO BID 02/03/19 [History Confirmed 02/03/19] PMH/Surg Hx/FS Hx/Imm Hx Endocrine/Hematology History: Reports: Hx Thyroid Disease - hypothyroid Denies: Hx Diabetes Cardiovascular History: Reports: Hx Angina, Hx Hypertension - on medications Denies: Other Cardiovascular Problems/Disorders Respiratory History: Denies: Other Respiratory Problems/Disorders GI History: Reports: Hx Gastroesophageal Reflux Disease - on ranitidine, Hx Irritable Bowel Denies: Other GI Disorders History: Reports: Other Problems/Disorders - Urinary incontinence Denies: Hx Renal Disease Musculoskeletal History: Reports: Hx Arthritis - Osteoarthritis-thumbs, neck, left knee, Hx Osteoporosis - TOOK MEDS FOR 5 YEARS Denies: Other Musculoskeletal History Sensory History: Reports: Hx Cataracts, Hx Contacts or Glasses - Glasses, Hx Glaucoma Denies: Hx Hearing Aid Opthamlomology History: Reports: Hx Cataracts, Hx Contacts or Glasses - Glasses , Hx Glaucoma Neurological History: Reports: Hx Migraine - stopped 4-5 years Denies: Other Neuro Impairments/Disorders Psychiatric History: Reports: Hx Anxiety - Bipolar disorder, Hx Depression - Bipolar disorder, Hx Bipolar Disorder - Cancer History Cancer Type, Location and Year: rt breast Hx Chemotherapy: No Hx Radiation Therapy: No - Surgical History Surgery Procedure, Year, and Place: Right mastectomy-1988 [facility] [place]. Multiple biopsies under general anesthesia. IMPLANT FOR BLADDER INCONTINENCE, SINCE REMOVED. URETERAL STENT 2018 Hx Anesthesia Reactions: Yes - HAD ISSUES WITH WAKING UP AFTER BIOPSY Infectious Disease History: No Infectious Disease History: Denies: Traveled Outside the [place] in Last 30 Days - Family History Known Family History: Positive: Other - Breast CA - Social History Alcohol Use: None Hx Substance Use: No Substance Use Type: Reports: None Hx Tobacco Use: No Smoking Status (MU): Never Smoked Tobacco Have You Smoked in the Last Year: No Review of Systems Negative: Fever Positive: Chest Pain Positive: Shortness Of Breath. Negative: Cough Negative: Abdominal Pain All Other Systems Reviewed And Are Negative: Yes Physical Exam Triage Information Reviewed: Yes Vital Signs On Initial Exam: Initial Vitals Temp Pulse Resp BP Pulse Ox 98.1 F 84 25 163/108 98 02/03/19 12:48 02/03/19 12:48 02/03/19 12:48 02/03/19 12:48 02/03/19 12:48 Vital Signs Reviewed: Yes Appearance: Positive: Well-Appearing Skin: Positive: Warm, Dry Head/Face: Positive: Normal Head/Face Inspection Eyes: Positive: Normal, Conjunctiva Clear ENT: Positive: Pharynx normal Respiratory/Lung Sounds: Positive: Clear to Auscultation, Breath Sounds Present Cardiovascular: Positive: Normal, RRR Abdomen Description: Positive: Nontender, Soft Bowel Sounds: Positive: Present Musculoskeletal: Positive: Normal Neurological: Positive: Normal Psychiatric: Positive: Normal Diagnostics - Vital Signs Vital Signs Temp Pulse Resp BP Pulse Ox 02/03/19 12:48 98.1 F 84 25 163/108 98 - Laboratory Lab Results: Lab Results 02/03/19 02/03/19 02/03/19 Range/Units 13:17 13:17 13:17 WBC 6.0 (3.5-10.8) 10^3/uL RBC 4.27 (3.70-4.87) 10^6 /uL Hgb 14.5 (12.0-16.0) g/dL Hct 42 (35-47) % MCV 99 H (80-97) fL MCH 34 H (27-31) pg MCHC 34 (31-36) g/dL RDW 13 (10-15) % Plt Count 260 (150-450) 10^3/uL MPV 7.3 L (7.4-10.4) fL Neut % (Auto) 77.3 % Lymph % (Auto) 12.4 % [place] % (Auto) 9.3 % Eos % (Auto) 0.7 % Baso % (Auto) 0.3 % Absolute Neuts (auto) 4.6 (1.5-7.7) 10^3/ul Absolute Lymphs (auto) 0.7 L (1.0-4.8) 10^3/ul Absolute Monos (auto) 0.6 (0-0.8) 10^3/ul Absolute Eos (auto) 0.0 (0-0.6) 10^3/ul Absolute Basos (auto) 0.0 (0-0.2) 10^3/ul Absolute Nucleated RBC 0.0 10^3/ul Nucleated RBC % 0.0 D-Dimer, Quantitative < 200 (Less Than 230) ng/mL Sodium 141 (135-145) mmol/L Potassium 3.9 (3.5-5.0) mmol/L Chloride 104 (101-111) mmol/L Carbon Dioxide 32 (22-32) mmol/L Anion Gap 5 (2-11) mmol/L BUN 20 (6-24) mg/dL Creatinine 0.56 (0.51-0.95) mg/dL Est GFR ( Amer) 127.7 (>60) Est GFR (Non-Af Amer) 105.5 (>60) BUN/Creatinine Ratio 35.7 H (8-20) Glucose 92 (70-100) mg/dL Lactic Acid (0.5-2.0) mmol/L Calcium 9.5 (8.6-10.3) mg/dL Total Bilirubin 0.40 (0.2-1.0) mg/dL AST 22 (13-39) U/L ALT 22 (7-52) U/L Alkaline Phosphatase 93 (34-104) U/L Troponin I Pending Total Protein 6.7 (6.4-8.9) g/dL Albumin 4.2 (3.2-5.2) g/dL Globulin 2.5 (2-4) g/dL Albumin/Globulin Ratio 1.7 (1-3) // Range/Units 13:17 WBC (3.5-10.8) 10^3/uL RBC (3.70-4.87) 10^6 /uL Hgb (12.0-16.0) g/dL Hct (35-47) % MCV (80-97) fL MCH (27-31) pg MCHC (31-36) g/dL RDW (10-15) % Plt Count (150-450) 10^3/uL MPV (7.4-10.4) fL Neut % (Auto) % Lymph % (Auto) % [place] % (Auto) % Eos % (Auto) % Baso % (Auto) % Absolute Neuts (auto) (1.5-7.7) 10^3/ul Absolute Lymphs (auto) (1.0-4.8) 10^3/ul Absolute Monos (auto) (0-0.8) 10^3/ul Absolute Eos (auto) (0-0.6) 10^3/ul Absolute Basos (auto) (0-0.2) 10^3/ul Absolute Nucleated RBC 10^3/ul Nucleated RBC % D-Dimer, Quantitative (Less Than 230) ng/mL Sodium (135-145) mmol/L Potassium (3.5-5.0) mmol/L Chloride (101-111) mmol/L Carbon Dioxide (22-32) mmol/L Anion Gap (2-11) mmol/L BUN (6-24) mg/dL Creatinine (0.51-0.95) mg/dL Est GFR ( Amer) (>60) Est GFR (Non-Af Amer) (>60) BUN/Creatinine Ratio (8-20) Glucose (70-100) mg/dL Lactic Acid 0.7 (0.5-2.0) mmol/L Calcium (8.6-10.3) mg/dL Total Bilirubin (0.2-1.0) mg/dL AST (13-39) U/L ALT (7-52) U/L Alkaline Phosphatase (34-104) U/L Troponin I Total Protein (6.4-8.9) g/dL Albumin (3.2-5.2) g/dL Globulin (2-4) g/dL Albumin/Globulin Ratio (1-3) Result Diagrams: 02/03/19 13:17 02/03/19 13:17 Lab Statement: Any lab studies that have been ordered have been reviewed, and results considered in the medical decision making process. - Radiology chest Radiology Interpretation Completed By: Radiologist Summary of Radiographic Findings: IMPRESSION: NO ACTIVE CARDIOPULMONARY DISEASE. - EKG No standard instances Cardiac Rate: NL EKG Rhythm: Sinus Rhythm ST Segment: Non-Specific Summary of EKG Findings: sinus rhythm, nonspecific t wave changes in anterior leads Chest Pain Course/Dx - Course Course Of Treatment: 73 year old female presents with chest pain intermittently for the past couple weeks. She states is worse when she exercises and at night. States it feels like a tightness. She felt pain last night that lasted 45 minutes and resolved. On exam lungs clear to auscultation. Heart regular rate and rhythm. EKG shows nonspecific T-wave changes anterior leads. give aspirin at urgent care. Troponin x2 0.0.chest xray normal. patient is chest pain free here. Discussed case with dr mckeon who recommends discussing with the hospitalist. Heart score of 5. discussed case with dr osullivan. - Chest Pain Differential Diagnosis/HQI/PQRI: Angina, Chest Wall, Lower Respiratory Infection - Diagnoses Provider Diagnoses: Chest pain Discharge - Sign-Out/Discharge Documenting (check all that apply): Patient Departure - Discharge Plan Condition: Stable Disposition: ADMITTED TO [facility] - Billing Disposition and Condition Condition: STABLE Disposition: Admitted to [facility]
[2019-02-03] MEDS ORDERED: Hyoscyamine TAB* 0.125 MG PO PRN (17:39)
[2019-02-03] MEDS ORDERED: Nitroglycerin TAB 0.4 MG* 0.4 MG TAB SL ONE (17:41)
[2019-02-03] MEDS ORDERED: Ondansetron INJ* 2 MG/ML VIAL IV PRN (17:42)
[2019-02-03] MEDS ORDERED: Acetaminophen TAB* 325 MG PO PRN (17:42)
[2019-02-03] MEDS ORDERED: lamoTRIgine TAB(*) 100 MG PO SCH (18:00)
[2019-02-03] MEDS ORDERED: amLODIPine TAB* 5 MG PO SCH (18:00)
[2019-02-03] MEDS ORDERED: Mirabegron (NF) 50 MG TAB PO SCH (18:00)
[2019-02-03] MEDS ORDERED: Enoxaparin(*) 40 MG/0.4 ML SYR SUBCUT SCH (18:00)
[2019-02-03] MEDS ORDERED: Lisinopril TAB* 10 MG PO SCH (18:00)
[2019-02-03 18:20] LABS: TSH (Thyroid Stimulating Horm) 1.82 mcIU/mL (0.34-5.60)
[2019-02-03] MEDS: buPROPion TAB* 100 MG PO SCH (21:59)
[2019-02-03] MEDS: clonazePAM TAB(*) 0.5 MG PO SCH (21:59)
[2019-02-03] MEDS: Famotidine TAB* 20 MG PO SCH (22:03)
--- NOTE | 2019-02-03 23:50 | HP ---
HISTORY AND PHYSICAL: DATE OF ADMISSION: 02/03/19 PRIMARY CARE PROVIDER: Kat Garcia, [facility]. HEALTHCARE PROXY: Her daughter. CODE STATUS: DNR. MOLST completed for the patient at her discretion. SOURCE OF INFORMATION: History obtained from interview with the patient, review of past medical records, and reliability is very good. CHIEF COMPLAINT: Chest discomfort. HISTORY OF PRESENT ILLNESS: This is a 73-year-old female who had a last admission to [facility] in 2014 for chest discomfort. Had a negative exercise, EKG stress at that time, but has experienced some intermittent chest discomfort while walking on the treadmill since that time, who has been in her usual state of health until approximately 2 weeks prior, started to note that she was having increased chest discomfort while using the treadmill. Describes a chest discomfort without associated other signs or symptoms occurring over the last 2 weeks. She generally exercises 3 times per week, ambulates 3 miles per hour on a level surface until 2 mile distance. She had 1 episode, where she experienced some chest discomfort that she thought she was short of breath, which was relieved upon stopping. Several nights prior, either 2 or 3 nights prior to presentation, she again had an episode of chest discomfort described as tightness in her chest while going to bed, resolved on its own. The night prior to presentation had another episode of chest tightness while going to bed , got up and drank hot water, which she thought might improve. After discussion with her previous primary care provider, Dr. Concepcion, had diagnosed her with esophageal spasm after her negative stress test in 2014. She had some improvement with the hot water, was able to sleep and today was evaluated in urgent care because of the afore-mentioned symptoms of chest discomfort occurring over the last several days when going to bed as described above. At urgent care, they obtained an EKG, which was thought to be changed from prior and she was directed to [facility]. The patient denied any previous symptoms, diaphoresis, nausea, lightheadedness, palpitations. She denies any changes in her medications. No orthopnea or PND. PAST MEDICAL HISTORY: Hypertension; migraines, last migraine was 6 years prior ; breast cancer status post right mastectomy in 1988; bipolar disorder; osteoporosis; GERD; Leon's neuroma; back pain; tortuous esophagus, on last EGD performed by Dr. Nowak; she had a left ureteral stent and then removed for hydronephrosis; history of esophageal rings, which were dilated; hypothyroidism; psoriasis; and knee arthritis, status post injection approximately 3 weeks prior. HOME MEDICATIONS: The patient brought her list, reviewed, include: 1. Lamictal 100 mg in the morning and 200 mg in the evening. 2. Wellbutrin 250 mg in the morning and a 100 mg in the evening. 3. Calcium plus minerals 1 tab daily. 4. Vitamin B complex 1 tab daily. 5. Probiotic 1 cap daily. 6. Vitamin D3 3000 units daily. 7. Dawson-3 1000 mg daily. 8. Multivitamin 1 tab daily. 9. Myrbetriq 50 mg in the evening. 10. Triamcinolone cream twice daily. 11. Hyoscyamine 0.125 mg sublingual every 6 hours as needed. 12. Ranitidine 150 mg twice daily. 13. Clonazepam 0.25 mg twice daily. 14. Amlodipine 10 mg in the evening. 15. Levothyroxine 100 mcg in the morning. 16. Lisinopril 40 mg in the evening. 17. Hydrochlorothiazide 12.5 mg in the morning. 18. CysReplete 2 caps twice daily. 19. NeuroReplete 300 mg twice daily. ALLERGIES: ENVIRONMENTAL allergies. FAMILY HISTORY: No history of CAD. Mother with breast cancer. SOCIAL HISTORY: No tobacco, no alcohol. Retired. REVIEW OF SYSTEMS: As per HPI, otherwise, all other systems negative. PHYSICAL EXAMINATION GENERAL: A well-appearing females, sitting up, interactive, pleasant, in no apparent distress. VITAL SIGNS: When seen by this author, 140/89, heart rate is 84, respiratory rate is 16. She is 97% on room air, T-Max 98.1. HEENT: Oropharynx is clear. She has moist mucous membranes. Sclerae are anicteric. LUNGS: Her lungs are clear throughout. HEART: She has regular rate and rhythm. No murmur, rubs, or gallops. She has no cervical or supraclavicular lymphadenopathy. ABDOMEN: Her abdomen is soft, tender, nondistended. EXTREMITIES: Her extremities are warm and well perfused, less than 2 second cap relief, 2 plus peripheral pulses. NEUROLOGIC: She is A and O x3. Her cranial nerves II through XII are intact. She has no apparent anxiety, agitation, or depression. DIAGNOSTIC STUDIES/LAB DATA: Labs reviewed. Troponin I 0.00 on consecutive checks. BNP 37. Lactic acid 0.7. White blood cell count is 6.0, platelets 260 , hemoglobin 14.5. D-dimer less than 200. Data Reviewed: Chest x-ray, impression: No active cardiopulmonary disease. EKG indicates T-wave inversion in V3 at 11:20 today, which persisted on repeat on transfer to [facility]; however, less pronounced. T-wave inversion is new since 2015. Submillimeter ST depression of V5, left axis. She is in normal sinus rhythm, normal intervals, good R-wave progression, no Qs. ASSESSMENT AND PLAN: This is a 73-year-old female with past medical history of chest discomfort in 2014 with negative stress test, now presenting with chest discomfort, Crescendo pattern over the last 2 weeks, punctuated by 2 episodes of chest discomfort described as tightness for the last 2 to 3 nights prior to presentation. 1. Chest discomfort, concern for unstable angina, negative troponins, new T- wave inversion in single leads since 2014. In setting of the patient's recent knee injections, we will opt for chemical stress with nuclear imaging. Received aspirin en route, continue aspirin tomorrow. One additional troponin for third in today's set. NPO after midnight. Lipids in 2018 were normal. We will not repeat at this point. Negative stress may land evidence towards esophageal spasm and/or discomfort from her tortuous esophagus seen on the last EGD. Monitor on telemetry. 2. Hypertension. Continue home medications including amlodipine and lisinopril /hydrochlorothiazide. 3. Bipolar disorder. Continue home medications including Lamictal, Wellbutrin , clonazepam. 4. Urinary incontinence. Continue Myrbetriq. 5. DVT prophylaxis with Lovenox. CODE STATUS: DNR. Discussed with the patient and completed MOLST. [id number]/[facility] #: [id number] [facility]
[2019-02-04] MEDS ORDERED: Levothyroxine TAB* 100 MCG TAB PO SCH (06:00)
[2019-02-04] MEDS ORDERED: Regadenoson* 0.4 MG/5 ML SYRINGE ONE ×2 (07:54→07:55)
[2019-02-04] MEDS ORDERED: buPROPion TAB* 75 MG PO SCH (08:00)
[2019-02-04] MEDS ORDERED: lamoTRIgine TAB(*) 100 MG PO SCH (09:00)
[2019-02-04] MEDS ORDERED: Multivitamins/Minerals TAB PO SCH (09:00)
[2019-02-04] MEDS ORDERED: Hydrochlorothiazide TAB* 25 MG PO SCH (09:00)
[2019-02-04] MEDS ORDERED: Aspirin 81 mg CHEW TAB* 81 MG TAB.CHEW PO SCH (09:00)
[2019-02-04 12:40] VITALS: BP 152/83
[2019-02-04] MEDS: buPROPion TAB* 100 MG PO SCH (13:32)
[2019-02-04] MEDS: Famotidine TAB* 20 MG PO SCH (13:33)
[2019-02-04] MEDS: clonazePAM TAB(*) 0.5 MG PO SCH (13:34)
--- NOTE | 2019-02-04 17:09 | DS ---
CC: Dr. Kat Garcia * DISCHARGE SUMMARY: DATE OF ADMISSION: 02/03/19 DATE OF DISCHARGE: 02/04/19 PRIMARY CARE PROVIDER: Dr. Subha Garcia, [facility]. DISPOSITION ON DISCHARGE: Home. CONDITION ON DISCHARGE: Good. PRIMARY DIAGNOSIS: Chest discomfort. SECONDARY DIAGNOSES: Include: 1. Hypertension. 2. Migraines. 3. Bipolar disorder. 4. Osteoporosis. 5. Gastroesophageal reflux disease. 6. Hypothyroidism. 7. History of esophageal rings. MEDICATIONS ON DISCHARGE: Unchanged from admission include: 1. Lamictal 100 mg in the morning and 200 mg at night. 2. Wellbutrin 250 mg in the morning and 100 mg at night. 3. Calcium plus vitamin D 1 tab daily. 4. B complex vitamins 1 cap daily. 5. Probiotic 1 tab daily. 6. Vitamin D3 at 3000 units. 7. [place]-3 fatty acid. 8. Fish oil 1000 mg daily. 9. Multivitamin 1 tab daily. 10. Myrbetriq 50 mg in the evening. 11. Triamcinolone cream topically twice daily. 12. Hyoscyamine 0.125 mg sublingual every 6 hours as needed. 13. Ranitidine 150 mg twice daily. 14. Clonazepam 0.25 mg twice daily. 15. Amlodipine 10 mg in the evening. 16. Levothyroxine 100 mcg in the morning. 17. Lisinopril 40 mg in the evening. 18. Hydrochlorothiazide 12.5 mg in the morning. 19. CysReplete 2 caps twice daily. 20. NeuroReplete 300 mg twice daily. PERTINENT LABORATORY DATA: Troponin I 0.00 on 3 consecutive checks. D-dimer less than 200. PROCEDURES PERFORMED DURING HOSPITAL STAY: Cardiac stress test with chemical stress and nuclear imaging. Impression is low risk, normal left ventricular wall motion and ejection fraction. LVEF of 63% at rest. HISTORY OF PRESENT ILLNESS AND HOSPITAL COURSE: A 73-year-old female with past medical as outlined in the history of present illness who on the day of admission presented with chest discomfort while exercising over the last 2 weeks intermittently and then 2 nights of chest discomfort prior to presentation lasting approximately 45 minutes. She sought care, had 3 negative troponins and a stress test that were normal. She did have an episode of chest discomfort the night prior to her stress test while hospitalized without any EKG , without any telemetry correlate, and no correlate on her stress testing. She had no chest pain during her stress testing. She was able to ambulate without chest pain. As noted above, she has had some intermittent esophageal pathology including rings that were dilated and on her last EGD was noted to have a tortuous esophagus. That procedure was performed for dysphagia. Dr. Concepcion was while caring for reportedly suspected esophageal spasm and that can be investigated further if symptoms continue. On the day of discharge, she was back to her baseline health with no discomfort including no chest pain, no shortness breath, nausea, vomiting, lightheadedness. She was tolerating her meals without this comfort. Her medications were not changed on discharge. No complications during the course of her hospital stay. Followup please; 1. Please evaluate for other pathology of chest discomfort if it continues. 2. No other specific labs or vitals that need followup. Reasons to return to the hospital including, but not limited to recurrent or worsening symptoms including chest discomfort, particularly long lasting and/or associated with other symptoms such as shortness of breath, nausea, vomiting, lightheadedness, diaphoresis, palpitations, loss of conscious or near loss of consciousness were discussed with the patient. She acknowledged her understanding. We further discussed that a low-risk stress test would not preclude the development of chest pain from cardiac etiology in the future. She acknowledged understanding. TIME SPENT: Greater than 45 minutes were spent in the discharge of the patient , greater than half was spent [id number] with this patient. [id number] #: [id number] MTDD
== END 2019-02-04 16:27 | disposition home or self-care (01) ==
LOC: ED 12:44 → MEDTELE 17:42
PROVIDERS: ADMIT Internal Medicine; ATTEND Internal Medicine
DX: R07.9 Chest pain, unspecified (principal); R06.02 Shortness of breath; I10 Essential (primary) hypertension; G43.909 Migraine, unspecified, not intractable, without status migrainosus; F31.9 Bipolar disorder, unspecified; M81.0 Age-related osteoporosis without current pathological fracture; R32 Unspecified urinary incontinence; K21.9 Gastro-esophageal reflux disease without esophagitis; E03.9 Hypothyroidism, unspecified; Z79.899 Other long term (current) drug therapy; G57.60 Lesion of plantar nerve, unspecified lower limb
CPT/HCPCS: 36415; 71045; 78452; 80053; 83605; 83880; 84443; 84484; 85025; 85379; 93005; 93017; 96372; 99285; A9270-GY; A9502; G0378; J1650; J2785

== ENCOUNTER 2024-01-21 14:09 | Observation (INO) ==
[2024-01-21 16:22] LABS: ABS Basophils 0.1 10^3/uL (0.0-0.1); ABS Eosinophils 0.2 10^3/uL (0.0-0.5); ABS Lymphocytes 1.1 10^3/uL (1.0-4.8); ABS Monocytes 0.5 10^3/uL (0.0-0.9); ABS Neutrophils 4.2 10^3/uL (1.5-7.6); Eosinophil % 3.4 %; Hematocrit 40.5 % (35-45); Hemoglobin 13.7 g/dL (11.5-14.3); Lymphocyte % 18.5 %; Mean Corpuscular Hemoglobin 33.2 pg (27-33); Mean Corpuscular Hgb Conc 33.7 g/dL (31-36); Mean Corpuscular Volume 98.3 fL (80-97); Mean Platelet Volume 7.6 fL (7.5-11.2); Platelet Count 288 10^3/uL (150-450); Red Blood Count 4.12 10^6/uL (3.63-4.92); Red Cell Distribution Width 13.1 % (12-17); White Blood Count 6.1 10^3/uL (3.8-11.8)
[2024-01-21 16:40] LABS: INR 0.96 (0.83-1.13)
[2024-01-21 17:15] LABS: Albumin 4.6 g/dL (3.2-5.2); Albumin/Globulin Ratio 2.3 (1-3); Calcium 9.7 mg/dL (8.6-10.3); Creatinine, Serum 0.57 mg/dL (0.51-0.95); Potassium 4.1 mmol/L (3.5-5.0); Total Bilirubin 0.3 mg/dL (0.2-1.0); Total Protein 6.6 g/dL (6.4-8.9); eGFR CKD-EPI 91.8 (>60)
[2024-01-21] MEDS: Iohexol 350 (CONTRAST) 500 ML MDV IV ONE (17:49)
[2024-01-21] MEDS: Enoxaparin 40 MG/0.4 ML SYR SUBCUT SCH (22:00)
[2024-01-22 05:33] LABS: ABS Eosinophils 0.2 10^3/uL (0.0-0.5); ABS Lymphocytes 1.4 10^3/uL (1.0-4.8); ABS Monocytes 0.8 10^3/uL (0.0-0.9); ABS Neutrophils 5.9 10^3/uL (1.5-7.6); ABS Nucleated RBC 0.01 10^3/ul; Eosinophil % 2.6 %; Hematocrit 37.6 % (35-45); Lymphocyte % 16.8 %; Mean Corpuscular Hemoglobin 34.1 pg (27-33); Mean Corpuscular Hgb Conc 34.6 g/dL (31-36); Mean Corpuscular Volume 98.6 fL (80-97); Mean Platelet Volume 7.8 fL (7.5-11.2); Nucleated Red Blood Cells % 0.1 %/100WBC (0.0-0.8); Platelet Count 261 10^3/uL (150-450); Red Blood Count 3.81 10^6/uL (3.63-4.92); Red Cell Distribution Width 13.2 % (12-17); White Blood Count 8.3 10^3/uL (3.8-11.8)
[2024-01-22 05:55] LABS: Calcium 8.9 mg/dL (8.6-10.3); Creatinine, Serum 0.58 mg/dL (0.51-0.95); Phosphorus 3.6 mg/dL (2.5-5.0); Potassium 3.4 mmol/L (3.5-5.0); eGFR CKD-EPI 91.4 (>60)
[2024-01-22] MEDS ORDERED: Sulfur Hexaflouride MICROSPHR 25 MG VIAL IV ONE (07:00)
[2024-01-22] MEDS: [UNRECOGNIZED DRUG - MIXTURE] INH SCH (09:19)
[2024-01-22] MEDS: Cholecalciferol (VIT D3) 1,000 unit TAB PO SCH (09:20)
[2024-01-22] MEDS: Calcium/Vitamin D TAB 250/125 TAB PO SCH (09:23)
[2024-01-22] MEDS: Potassium Chlor 20 meq TAB.ER PO ONE (09:24)
[2024-01-22] MEDS ORDERED: Polyethylene Glycol 3350 17 GM PACKET PO PRN (11:25)
[2024-01-22 18:03] VITALS: BP 121/75
[2024-01-22] MEDS ORDERED: CMCS: Mirabegron 25 mg ER TAB (NF) PO SCH (21:00)
== END 2024-01-22 19:30 | disposition home or self-care (01) ==
LOC: ED 14:09 → EDHOLD 14:09 → SUATTDRO 20:12 → MEDTELE 22:34
PROVIDERS: ADMIT Student in an Organized Health Care Education/Training Program; ATTEND Student in an Organized Health Care Education/Training Program